=== PATIENT | male | born 1955 ===

== ENCOUNTER 2021-12-10 10:51 | Outpatient (REF) | payer MEDICARE, SELFPAY ==
--- NOTE | 2021-12-10 11:08 | ECG_ITS ---
Test Reason : PREOP Blood Pressure : / mmHG Vent. Rate : 071 BPM Atrial Rate : 071 BPM P-R Int : 136 ms QRS Dur : 078 ms QT Int : 402 ms P-R-T Axes : 081 066 056 degrees QTc Int : 436 ms Sinus rhythm with Premature atrial complexes Otherwise normal ECG No previous ECGs available Referred By: Angelina Graf Electronically Signed By:FE RIVERA MD
[2021-12-10 11:13] LABS: MANUAL DIFF FLAG NO
[2021-12-10 11:37] LABS: Basophils Absolute Auto 0.1 X10*3/uL (0.0-0.2); Basophils Percent Auto 1.2 % (0-2); Eosinophils Absolute Auto 0.3 X10*3/uL (0.0-0.4); Hematocrit 36.6 % (42.0-52.0); Hemoglobin 12.4 g/dl (14.0-18.0); Imm Gran Abs Auto 0.01 X10*3/uL (0.00-0.03); Imm Gran Pct Auto 0.2 % (0.0-0.4); Lymphocytes Absolute Auto 1.8 X10*3/uL (1.2-4.9); Lymphocytes Percent Auto 43.4 % (20-40); Mean Corpuscular HGB Conc 33.9 g/dl (31.0-36.0); Mean Corpuscular Hemoglobin 29.9 pg (27.0-33.0); Mean Corpuscular Volume 88.2 fL (80.0-98.0); Mean Platelet Volume 10.3 fL (9.4-12.4); Monocytes Absolute Auto 0.4 X10*3/uL (0.1-1.2); Monocytes Percent Auto 9.4 % (2-11); Neutrophils Absolute Auto 1.6 x10*3/uL (2.0-8.3); Neutrophils Percent Auto 37.8 % (45-73); Platelet Count 284 X10*3/uL (160-400); Red Blood Count 4.15 X10*6/uL (4.60-5.80); White Blood Count 4.2 X10*3/uL (4.8-10.8)
[2021-12-10 11:46] LABS: Prothrombin Time 10.8 SEC (9.9-13.0)
[2021-12-10 11:49] LABS: Partial Thromboplastin Time 35.1 SEC (24.1-38.0)
[2021-12-10 12:24] LABS: Alanine Aminotransferase 20 U/L (0-40); Albumin Level 4.4 g/dL (3.5-5.0); Alkaline Phosphatase 71 U/L (39-117); Anion Gap 13 (12-20); Aspartate Amino Transferase 27 U/L (5-37); Bilirubin Total 0.5 mg/dL (0.0-1.0); Blood Urea Nitrogen 16 mg/dL (9-16); Calcium 9.3 mg/dL (8.4-10.2); Carbon Dioxide 24 mmol/L (22-29); Chloride 105 mmol/L (96-108); Cholesterol 152 mg/dL; Estimated Glomerular Filt Rate > 60; Glucose Fasting 65 mg/dL (60-99); HDL Cholesterol 42 mg/dL; LDL Cholesterol Calculated 82 mg/dl; Potassium 4.8 mmol/L (3.3-5.1); Sodium 137 mmol/L (135-145); Total Protein 7.4 g/dL (6.5-8.0); Triglycerides 142 mg/dL
[2021-12-10 12:27] LABS: Prostate Specific Antigen Scr 0.18 ng/mL (<0.05-4.0)
[2021-12-10 12:57] LABS: TSH reflex Free T4 1.75 uIU/mL (0.32-4.0)
== END 2021-12-10 10:52 | disposition home or self-care (01) ==
LOC: HO.LAB 10:51
PROVIDERS: PCP Internal Medicine; Visit Provider Nurse Practitioner Family
DX: Z01.818 Encounter for other preprocedural examination (principal); Z13.1 Encounter for screening for diabetes mellitus; Z13.220 Encounter for screening for lipoid disorders; Z12.5 Encounter for screening for malignant neoplasm of prostate; D17.0 Benign lipomatous neoplasm of skin and subcutaneous tissue of head, face and neck; E78.00 Pure hypercholesterolemia, unspecified; I10 Essential (primary) hypertension; Z76.89 Persons encountering health services in other specified circumstances
CPT/HCPCS: 36415; 80053; 80061; 84153; 84443; 85025; 85610; 85730; 93005

== ENCOUNTER → 2021-12-23 15:51 | Outpatient (BNVA) | payer MEDICARE, SELFPAY | PROVIDERS: PCP Internal Medicine; Referring Provider Internal Medicine; Visit Provider Surgery | DX: R22.0 Localized swelling, mass and lump, head (principal) | CPT/HCPCS: 99202 ==

== ENCOUNTER 2022-01-28 07:23 | Outpatient (REF) | payer MEDICARE, SELFPAY ==
[2022-01-28 07:34] VITALS: BP 127/85; PULSE 65; RESP 16; TEMP 36.9; O2SAT 98
[2022-01-28 08:00] VITALS: BMI 21.6
--- NOTE | 2022-01-28 08:29 | W.PM.OPN ---
Operative Note Operative Note Date of Service: 01/28/22 Narrative: Preop diagnosis: subcutaneous mass,left and right cheeks Postop diagnosis: Epidermal inclusion cyst, left and right cheeks Procedure: Excision of epidermal inclusion cyst x2, left and right cheek surgeon: Miguel Chu MD Patient is 66-year-old male with well-defined, subcutaneous masses on the left and right cheeks. Her both about 1 cm in diameter. This were both mobile. Understood the technique of excision under local anesthesia. He was aware of the risks, benefits, and alternatives He was brought to the minor procedure room. He was placed supine. The right cheek was prepped draped usual sterile fashion. A surgical time-out had been done. Infiltrated the area with lidocaine 1%. I made an incision on the skin overlying the subcutaneous mass using blade 15. This was carried down with sharp dissection using the blade as well as in scissors until a cyst capsule was seen. I sharply dissected the cyst capsule using a fine tip pair of scissors to free this from the rest of subcutaneous layer and this was delivered and sent as a specimen. This was consistent with an epidermal inclusion cyst. this was about 1 cm in diameter. I closed the incision with full-thickness nylon 5 0 simple interrupted sutures. Steri-Strips were applied. I then proceeded to prep and drape the mass on the left cheek. I infiltrated this with lidocaine 1%. I made the incision using blade 15 and carried this down until a cyst capsule was visualized. I sharply dissected the cyst capsule off of the rest of the subcutaneous tissue using fine scissors. This was sent as a specimen. I closed this incision with nylon 5 0 simple interrupted sutures. Steri-Strips were applied. The procedure was then completed The patient tolerated procedure well. There were no complications noted. Estimated blood loss was less than 2 cc . The patient was given wound care instructions and will be seen in the office for follow-up visit.
[2022-01-28 08:30] VITALS: BP 135/88; PULSE 63; RESP 16; O2SAT 98
== END 2022-01-28 07:24 | disposition home or self-care (01) ==
LOC: HO.MS 07:23
PROVIDERS: PCP Internal Medicine; Visit Provider Surgery
PROC: (CPT 11442; principal; 2022-01-28 08:00)
DX: L72.0 Epidermal cyst (principal)
CPT/HCPCS: 11442; 11441; 88304; 88305

== ENCOUNTER 2022-05-28 17:21 | Emergency (ER) | payer MEDICARE, SELFPAY ==
[2022-05-28 19:12] VITALS: BP 129/80; PULSE 64; RESP 18; TEMP 36.5; O2SAT 97; BMI 21.6
[2022-05-28 20:48] LABS: MANUAL DIFF FLAG NO
[2022-05-28 20:50] LABS: Basophils Percent Auto 0.6 % (0-2); Eosinophils Absolute Auto 0.3 X10*3/uL (0.0-0.4); Eosinophils Percent Auto 4.8 % (0-4); Hematocrit 37.2 % (42.0-52.0); Hemoglobin 12.6 g/dl (14.0-18.0); Lymphocytes Absolute Auto 2.3 X10*3/uL (1.2-4.9); Lymphocytes Percent Auto 44.8 % (20-40); Mean Corpuscular HGB Conc 33.9 g/dl (31.0-36.0); Mean Corpuscular Hemoglobin 29.9 pg (27.0-33.0); Mean Corpuscular Volume 88.4 fL (80.0-98.0); Mean Platelet Volume 8.3 fL (9.4-12.4); Monocytes Absolute Auto 0.4 X10*3/uL (0.1-1.2); Monocytes Percent Auto 6.9 % (2-11); Neutrophils Absolute Auto 2.2 x10*3/uL (2.0-8.3); Neutrophils Percent Auto 42.9 % (45-73); Platelet Count 335 X10*3/uL (160-400); Red Blood Count 4.21 X10*6/uL (4.60-5.80); Red Cell Distribution Width 13.1 % (11.0-16.0); White Blood Count 5.2 X10*3/uL (4.8-10.8)
[2022-05-28 21:11] LABS: Alanine Aminotransferase 19 U/L (0-40); Albumin Level 4.6 g/dL (3.5-5.0); Alkaline Phosphatase 70 U/L (39-117); Anion Gap 13 (12-20); Aspartate Amino Transferase 25 U/L (5-37); Bilirubin Total 0.5 mg/dL (0.0-1.0); Blood Urea Nitrogen 17 mg/dL (9-16); Calcium 9.4 mg/dL (8.4-10.2); Carbon Dioxide 28 mmol/L (22-29); Chloride 102 mmol/L (96-108); Creatinine Clr Calc Pharmacy 66.5; Estimated Glomerular Filt Rate > 60; Glucose Random 95 mg/dL (60-115); Magnesium 2.1 mg/dL (1.6-2.6); Potassium 3.8 mmol/L (3.3-5.1); Sodium 139 mmol/L (135-145); Total Protein 7.4 g/dL (6.5-8.0)
[2022-05-28 21:32] LABS: TSH reflex Free T4 2.41 uIU/mL (0.32-4.0)
== END 2022-05-29 00:33 | disposition left against medical advice (07) ==
PROVIDERS: Emergency Provider Emergency Medicine; PCP Internal Medicine
DX: R06.02 Shortness of breath (principal); Z79.899 Other long term (current) drug therapy
CPT/HCPCS: 36415; 71045; 80053; 83735; 84443; 85025; 99281; 99283

== ENCOUNTER 2022-11-26 07:00 | Outpatient (REF) | payer MEDICARE, SELFPAY ==
--- NOTE | ~2022-11-26 | XR_ITS ---
EXAMINATION: XR KNEE, RIGHT CLINICAL INFORMATION: Pain COMPARISON: None available. TECHNIQUE: Two views of the right knee. FINDINGS: No fracture or dislocation. Normal joint spaces. Small osteophyte at the quadriceps tendon insertion to the patella. No joint effusion. XR/XR knee RT 2V IMPRESSION: Small osteophyte at the quadriceps tendon insertion to the patella.
[2022-11-26 07:11] LABS: MANUAL DIFF FLAG NO
[2022-11-26 07:24] LABS: Basophils Percent Auto 0.9 % (0-2); Eosinophils Absolute Auto 0.3 X10*3/uL (0.0-0.4); Eosinophils Percent Auto 7.3 % (0-4); Hematocrit 39.1 % (42.0-52.0); Hemoglobin 12.8 g/dl (14.0-18.0); Imm Gran Abs Auto 0.01 X10*3/uL (0.00-0.03); Imm Gran Pct Auto 0.2 % (0.0-0.4); Lymphocytes Absolute Auto 1.9 X10*3/uL (1.2-4.9); Lymphocytes Percent Auto 40.9 % (20-40); Mean Corpuscular HGB Conc 32.7 g/dl (31.0-36.0); Mean Corpuscular Hemoglobin 29.6 pg (27.0-33.0); Mean Corpuscular Volume 90.3 fL (80.0-98.0); Mean Platelet Volume 9.3 fL (9.4-12.4); Monocytes Absolute Auto 0.4 X10*3/uL (0.1-1.2); Neutrophils Percent Auto 42.7 % (45-73); Platelet Count 307 X10*3/uL (160-400); Red Blood Count 4.33 X10*6/uL (4.60-5.80); Red Cell Distribution Width 13.5 % (11.0-16.0); White Blood Count 4.6 X10*3/uL (4.8-10.8)
[2022-11-26 08:13] LABS: Alanine Aminotransferase 18 U/L (0-40); Albumin Level 4.7 g/dL (3.5-5.0); Alkaline Phosphatase 70 U/L (39-117); Anion Gap 15 (12-20); Aspartate Amino Transferase 24 U/L (5-37); Bilirubin Total 0.6 mg/dL (0.0-1.0); Blood Urea Nitrogen 20 mg/dL (9-16); Calcium 9.4 mg/dL (8.4-10.2); Carbon Dioxide 25 mmol/L (22-29); Chloride 105 mmol/L (96-108); Cholesterol 170 mg/dL; Estimated Glomerular Filt Rate > 60; Glucose Fasting 85 mg/dL (60-99); HDL Cholesterol 59 mg/dL; LDL Cholesterol Calculated 98 mg/dl; Potassium 4.6 mmol/L (3.3-5.1); Sodium 140 mmol/L (135-145); Total Protein 7.1 g/dL (6.5-8.0); Triglycerides 69 mg/dL
[2022-11-26 08:18] LABS: PSA,Total (Free>4and<10) 0.18 ng/mL (0.00-4.00)
== END 2022-11-26 07:01 | disposition home or self-care (01) ==
LOC: HO.LAB 07:00
PROVIDERS: PCP Internal Medicine; Visit Provider Internal Medicine
DX: Z00.00 Encounter for general adult medical examination without abnormal findings (principal); Z12.5 Encounter for screening for malignant neoplasm of prostate; M25.561 Pain in right knee; D75.89 Other specified diseases of blood and blood-forming organs
CPT/HCPCS: 36415; 73560; 80053; 80061; 84153; 85025

== ENCOUNTER 2022-12-03 07:42 | Outpatient (REF) | payer MEDICARE, SELFPAY ==
--- NOTE | ~2022-12-03 | US_ITS ---
EXAMINATION: US RETROPERITONEAL LIMITED (AORTA) CLINICAL INFORMATION: Nicotine dependence, unspecified. COMPARISON: None available. TECHNIQUE: Mejia-scale, color Doppler and spectral Doppler evaluation of the abdominal aorta. FINDINGS: The aorta is normal. The measurements of the aorta in maximum AP and transverse dimensions respectively are as follows: Proximal: 2.7 x 2.7 cm. Mid: 2.0 x 2.1 cm. Distal: 1.8 x 1.9 cm. PSV: 76 cm/s. The measurements of the common iliac arteries in maximum AP and TRV dimensions are as follows: Right Common Iliac Artery: 0.9 x 1.0 cm. Left Common Iliac Artery: 0.8 x 1.0 cm. US/US abdominal aortic aneurysm IMPRESSION: No abdominal aortic aneurysm.
== END 2022-12-03 07:43 | disposition home or self-care (01) ==
LOC: HO.US 07:42
PROVIDERS: PCP Internal Medicine; Visit Provider Internal Medicine
DX: Z13.6 Encounter for screening for cardiovascular disorders (principal); F17.200 Nicotine dependence, unspecified, uncomplicated
CPT/HCPCS: 76706

== ENCOUNTER 2022-12-24 15:17 | Outpatient (REF) | payer MEDICARE, SELFPAY ==
--- NOTE | ~2022-12-24 | CT_ITS ---
EXAMINATION: CT CHEST SCREENING CLINICAL INFORMATION: Nicotine dependence. One pack per day for 55 years. COMPARISON: None available. TECHNIQUE: Multidetector volumetric CT imaging of the chest is performed without contrast using low dose technique. Additional 2D coronal and sagittal reformatted images and axial 3D maximum intensity projection (MIP) images are generated on the CT workstation. This CT examination was performed using dose optimization techniques as appropriate, variously including the following: *Automated exposure control *Adjustment of mA and/or kV according to patient size (this includes techniques or standardized protocols for targeted exams where dose is matched to indication/reason for exam; i.e. extremities or head) *Use of iterative reconstruction technique DLP: 41 mGy-cm FINDINGS: LUNGS: The lungs are well expanded and clear of acute pneumonic process. There are no pulmonary nodules, mass or consolidation. No ground-glass density seen. There are mild atelectatic changes right lower lobe. MEDIASTINUM: The thyroid lobes are symmetrical and normal. The central trachea and the bronchi are widely patent. Heart size and the great vessels are normal caliber. No pericardial effusion seen. No abnormal size mediastinal or hilar lymph nodes. CORONARY ARTERY CALCIFICATION: None visualized on this study. PLEURA: There is no pleural effusion. No pleural mass or thickening. AXILLA: No lymphadenopathy. UPPER ABDOMEN: Visualized liver, spleen, pancreas and bilateral adrenal glands are unremarkable. OSSEOUS STRUCTURES: No aggressive lytic or sclerotic process seen. CT/CT lung screening IMPRESSION: Plate-like atelectasis right lower lobe. No acute cardiopulmonary process. ASSESSMENT: Lung-RADS category 1: Negative RECOMMENDATION: Low-dose annual CT chest.
== END 2022-12-24 15:18 | disposition home or self-care (01) ==
LOC: HO.CT 15:17
PROVIDERS: PCP Internal Medicine; Visit Provider Physician Assistant Medical
DX: F17.210 Nicotine dependence, cigarettes, uncomplicated (principal); Z71.6 Tobacco abuse counseling
CPT/HCPCS: 71271; G0296

== ENCOUNTER 2023-11-22 15:44 | Outpatient (AMB) | payer MEDICARE, SELFPAY ==
--- NOTE | 2023-11-22 16:02 | A.OFFPC_ITS ---
Vital Signs 11/22/23 16:03 Height 5 ft 5 in Weight 120 lb BMI 20.0 BP 130/84 Blood Pressure Location Lt brachial Position Sitting Intake Visit Reasons: PE Intake Note: Patient here for a physical exam Collection Coordinator Required: No Accompanied by: Sister Allergies No Known Allergies Allergy (Verified 11/22/23 16:23) Medication List - Last Reconciled 11/22/23 by Seble Laguerre MD No Known Home Meds Tobacco use date assessed: 11/22/23 Fall risk assessment: No Falls in past year Last assessed Fall Risk: 11/22/23 Dental Screening Dental Screen Date: 11/22/23 Did you have a dental visit in the last 12 months?: Yes Did you have a dental problem in the last 6 months where you did not have access to dental care?: No Was dental information given to patient?: Patient has dentist HPI HPI Comments History of Present Illness Details This is a 68-year-old male that comes for his physical exam accompanied by sister. Colonoscopy done in [place] 2019 and was normal as per patient. Denies any chest pain. Complains of shortness of breath and is a smoker. [facility] Medical History (Updated 11/22/23 @ 16:41 by Seble Laguerre MD) Nicotine dependence, cigarettes, uncomplicated Surgical History History of excision of mass Family History Father Diabetes Stroke Prostate CA, Onset Age: 60 Mother Cancer Social History (Updated 11/22/23 @ 16:28 by Seble Laguerre MD) Housing: Apartment (with sister) Alcohol intake: current Alcohol intake frequency: a few times a month Alcohol type: beer, wine and hard liquor Patient Tobacco Use Status: Current everyday Tobacco user Tobacco use type: Cigarette Cigarettes Per Day: 10 e-Cigarette/Vaping Use: Never Used Second Hand Smoke Exposure: Yes service: No Current occupational status: employed Current occupational exposures/hazards: No Cognitive needs: No Hearing needs: No Vision needs: Yes (Glasses) Questionnaire PHQ-9 Over the last 2 weeks, how often have you been bothered by any of the following problems? 1. Little interest or pleasure in doing things: not at all 2. Feeling down, depressed, or hopeless: not at all 3. Trouble falling or staying asleep, or sleeping too much: not at all 4. Feeling tired or having little energy: not at all 5. Poor appetite or overeating: not at all 6. Feeling bad about yourself - or that you are a failure or have let yourself or your family down: not at all 7. Trouble concentrating on things, such as reading the newspaper or watching television: not at all 8. Moving or speaking so slowly that other people could have noticed. Or the opposite - being so fidgety or restless that you have been moving around a lot more than usual: not at all 9. Thoughts that you would be better off or of hurting yourself in some way: not at all Total score: 0 Depression Screening Interpretation: Negative Depression Screening Done: Yes 13926 - PHQ-9 Billing: Yes Source: Developed by Drs. Sam Salcedo, Padmini Almaguer, Bladimir Velasquez and colleagues, with an educational theo from [employer]. Thrive Questionnaire Date Thrive assessed: 11/22/23 I am a: Patient What is your living situation today?: I have a steady place to live Within the past 12 months, did the food you bought not last and you didn't have the money to get more?: Never true Within the past 12 months, did you worry whether your food would run out before you got money to buy more?: Never true Do you have trouble paying for medicines?: No Do you have trouble getting transportation to medical appointments?: No Do you have trouble paying your heating and electricity bill?: No Do you have trouble taking care of your child, family member or friend?: No Do you have trouble with day-to-day activities such as bathing, preparing meals, shopping, managing finances, etc.?: No Are you currently unemployed and looking for a job?: No Are you interested in more education?: No Please select the resources that you would like help with: None Currently or been in a relationship where the following occur: no concerns repo rted THRIVE Score: 0 AUDIT C Alcohol Use Questionnaire (AUDIT-C) 1. How often do you have a drink containing alcohol?: 2-3 times a week 2. How many drinks containing alcohol do you have on a typical day when you are drinking?: 3 or 4 3. How often do you have six or more drinks on one occasion?: Never Total Score: 4 TEX-7 AMB Questionnaire TEX-7 Date TEX - 7 assessed: 11/22/23 Feeling nervous, anxious, or on edge: 0 = Not at all Not being able to stop or control worryin = Not at all Worrying too much about different things: 0 = Not at all Trouble relaxin = Not at all Being so restless that it is hard to sit still: 0 = Not at all Becoming easily annoyed or irritable: 0 = Not at all Feeling afraid as if something awful might happen: 0 = Not at all Total TEX-7 score (0-4 normal; 5-9 mild; 10-14 moderate; 15-21 severe): 0 Source: Developed by Drs. Sam Salcedo, Padmini Almaguer, Bladimir Velasquez and colleagues, with an educational theo from [employer]. TEX-7 Assessment Billing TEX-7 Assessment Tool: TEX-7 Assessment 50572 Review of Systems Const All systems reviewed & are unremarkable except as noted in HPI and below Eyes Reports no additional complaints, Denies change in vision and Denies other visual disturbances Card Denies chest pain at rest, Denies chest pain with activity, Denies edema, Denies irregular heart rhythm, Denies claudication, Denies dyspnea, Denies dyspnea on exertion, Denies orthopnea, Denies paroxysmal nocturnal dyspnea and Denies slow heart rate Resp Denies cough, Denies dyspnea and Denies dyspnea on exertion GI Denies abdominal pain, Denies change in bowel habits, Denies excessive flatus, Denies nausea and Denies vomiting Denies urinary hesitancy, Denies urinary incontinence and Denies urinary urgency Physical exam (Primary Care) Vital Signs: Last Vital Signs BP 130/84 11/22/23 16:03 BMI result Body Mass Index 20.0 Tobacco/Smoking Status: Tobacco use Status Tobacco use date assessed 11/22/23 11/22/23 16:10 Patient Tobacco Use Status Current everyday Tobacco 11/22/23 16:28 Tobacco use type Cigarette 11/22/23 16:28 e-Cigarette/Vaping Use Never Used 11/22/23 16:28 PHQ-9: PHQ-9 Score PHQ-9: Total score 0 11/22/23 16:29 Depression Screening Interpretation: Negative Thrive Assessment: Date of Thrive Assessment Date Thrive assessed 11/22/23 11/22/23 16:10 Currently or been in a relationship where the following occur: no concerns reported Const Orientation/consciousness: patient oriented x3 HENMT Head: Yes normal to inspection, Yes normocephalic and Yes atraumatic Ears: external ears normal Eyes General: appearance normal, both eyes and all related structures Eyelids: Yes eyelids normal Conjunctivae: conjunctivae normal Neck Neck: Yes normal visual inspection and Yes supple Resp Effort & Inspection: normal respiratory effort Auscultation: clear to auscultation bilaterally Cardio Jugular venous distension: no JVD Rate: regular rate Rhythm: regular rhythm Heart sounds: S1 normal heart sound present and S2 normal heart sound present GI Inspection: Yes normal to inspection Palpation (GI): Soft to palpation and nontender Auscultation: normal bowel sounds Skin General skin exam: no rashes or lesions noted Neuro General: patient oriented x3 and no focal motor deficits Extrem General: Yes full ROM Psych Appearance: grossly normal Assessment and Plan Assessment & Plan (1) Physical exam: Code(s): Z00.00 - Encounter for general adult medical examination without abnormal findings Plan: Repeat in a year. Orders: Orders Complete Blood Count Auto Diff Today D64.9 - Anemia, unspecified IRON PROFILE Today D64.9 - Anemia, unspecified Lipid Panel Today Z00.00 - Encounter for general adult medical examination without abnormal findings PSA,Total (Free>4and<10) Today Z12.5 - Encounter for screening for malignant neoplasm of prostate Comprehensive [facility]. Panel Fast Today Z00.00 - Encounter for general adult medical examination without abnormal findings Referrals Pulmonology Referral R06.00 - Dyspnea, unspecified Medications: New Ventolin HFA 90 mcg/actuation (albuterol sulfate) 2 puffs inhalation Q6H 30 days PRN 8 grams 1RF shortness of breath or wheezing NS R06.00 - Dyspnea, unspecified Coding Level of Care Code Est Pt Prev Care >65y(39931) Diagnoses Physical exam Z00.00 Additional Codes TEX-7 Assessment Billing - TEX-7 Assessment Tool: TEX-7 Assessment 56352 ([id number]) Time Spent (min) 32
[2023-11-22 16:03] VITALS: BP 130/84
== END 2023-11-22 16:34 | disposition home or self-care (01) ==
PROVIDERS: Visit Provider Internal Medicine
DX: Z00.00 Encounter for general adult medical examination without abnormal findings (principal)
CPT/HCPCS: 99397

== ENCOUNTER 2023-11-26 06:55 | Outpatient (REF) | payer MEDICARE, SELFPAY ==
[2023-11-26 07:11] LABS: MANUAL DIFF FLAG NO
[2023-11-26 07:53] LABS: Basophils Percent Auto 0.6 % (0-2); Eosinophils Absolute Auto 0.7 X10*3/uL (0.0-0.4); Eosinophils Percent Auto 14.3 % (0-4); Hematocrit 39.5 % (42.0-52.0); Hemoglobin 13.1 g/dl (14.0-18.0); Imm Gran Abs Auto 0.01 X10*3/uL (0.00-0.03); Imm Gran Pct Auto 0.2 % (0.0-0.4); Lymphocytes Absolute Auto 1.9 X10*3/uL (1.2-4.9); Lymphocytes Percent Auto 39.8 % (20-40); Mean Corpuscular HGB Conc 33.2 g/dl (31.0-36.0); Mean Corpuscular Hemoglobin 30.5 pg (27.0-33.0); Mean Corpuscular Volume 91.9 fL (80.0-98.0); Mean Platelet Volume 9.3 fL (9.4-12.4); Monocytes Absolute Auto 0.5 X10*3/uL (0.1-1.2); Monocytes Percent Auto 9.6 % (2-11); Neutrophils Absolute Auto 1.7 x10*3/uL (2.0-8.3); Neutrophils Percent Auto 35.5 % (45-73); Platelet Count 339 X10*3/uL (160-400); Red Cell Distribution Width 13.1 % (11.0-16.0); White Blood Count 4.7 X10*3/uL (4.8-10.8)
[2023-11-26 08:41] LABS: Alanine Aminotransferase 20 U/L (0-40); Albumin Level 4.5 g/dL (3.5-5.0); Alkaline Phosphatase 89 U/L (39-117); Anion Gap 11 (12-20); Aspartate Amino Transferase 23 U/L (5-37); Bilirubin Total 0.2 mg/dL (0.0-1.0); Blood Urea Nitrogen 12 mg/dL (9-16); Calcium 9.7 mg/dL (8.4-10.2); Carbon Dioxide 26 mmol/L (22-29); Chloride 106 mmol/L (96-108); Cholesterol 145 mg/dL (<200); Estimated Glomerular Filt Rate > 60; Glucose Fasting 105 mg/dL (60-99); HDL Cholesterol 48 mg/dL (>40); Iron 61 mcg/dL (45-160); LDL Cholesterol Calculated 81 mg/dL (<100); Percent Iron Saturation 23 % (15-50); Sodium 139 mmol/L (135-145); Total Iron Binding Capacity 263 mcg/dL (228-428); Total Protein 7.4 g/dL (6.5-8.0); Triglycerides 84 mg/dL (<150); Unsaturated Iron Binding 202 ug/dL
[2023-11-26 08:53] LABS: PSA,Total (Free>4and<10) 0.23 ng/mL (0.00-4.00)
== END 2023-11-26 06:56 | disposition home or self-care (01) ==
LOC: HO.LAB 06:55
PROVIDERS: PCP Internal Medicine; Visit Provider Internal Medicine
DX: Z00.00 Encounter for general adult medical examination without abnormal findings (principal); D64.9 Anemia, unspecified; Z12.5 Encounter for screening for malignant neoplasm of prostate
CPT/HCPCS: 36415; 80053; 80061; 83540; 84153; 85025

== ENCOUNTER 2024-02-16 10:23 | Outpatient (AMB) | payer MEDICARE, SELFPAY ==
[2024-02-16 10:31] VITALS: BP 120/78; PULSE 79; O2SAT 95; BMI 19.3
--- NOTE | 2024-02-16 10:31 | A.OFFVIS_ITS ---
Vital Signs 02/16/24 10:31 Height 5 ft 5 in Weight 115 lb 11.883 oz BMI 19.3 BP 120/78 Blood Pressure Location Rt brachial Position Sitting Pulse 79 Pulse Source Doppler Pulse Oximetry (%) 95 Oxygen Delivery Method Room Air Intake Visit Reasons: dyspnea Pneumatic System Conveyor Operator Required: Yes Pneumatic System Conveyor Operator Name: Oxana Glynn Oleary Allergies No Known Allergies Allergy (Verified 02/16/24 10:34) HPI HPI dyspnea: Details: 68-year-old gentleman, active 30 pack-year smoker referred for evaluation of dyspnea on exertion that he has been noticing over the last months. Patient denies wheezing, cough or sputum production. He does have family history of asthma in first-degree relatives. Patient denies prior personal history of lung disease. He has been employed without exposure to industrial dusts. He denies having environmental allergies. [facility] Medical History Nicotine dependence, cigarettes, uncomplicated Surgical History History of excision of mass Family History Father Diabetes Stroke Prostate CA, Onset Age: 60 Mother Cancer Social History (Updated 02/16/24 @ 10:36 by Oxana Sheets [facility]) Housing: Apartment (with sister) Alcohol intake: current Alcohol intake frequency: a few times a month Alcohol type: beer, wine and hard liquor Patient Tobacco Use Status: Current everyday Tobacco user Tobacco use type: Cigarette Cigarettes Per Day: 10 Years Smoked: Started at age 19, half a pack per day e-Cigarette/Vaping Use: Never Used Second Hand Smoke Exposure: Yes service: No Current occupational status: employed Current occupational exposures/hazards: No Cognitive needs: No Hearing needs: No Vision needs: Yes (Glasses) Review of Systems Const Denies daytime sleepiness, Denies excessive sweating, Denies fatigue, Denies fever(s), Denies lethargy, Denies malaise, Denies night sweats, Denies snoring and Denies weight loss Eyes Denies blurry vision and Denies itchy eyes ENT Denies nasal congestion, Denies post nasal drip, Denies sinus pain, Denies sinus pressure and Denies other ( Thrush) Card Denies chest pain, Denies pedal edema, Denies dyspnea, Reports dyspnea on exertion, Denies orthopnea and Denies paroxysmal nocturnal dyspnea Resp Denies cough, Denies hemoptysis, Denies excessive phlegm production, Denies dyspnea, Reports dyspnea on exertion, Denies snoring and Denies wheezing GI Denies abdominal pain and Denies heartburn Musc Denies myalgias, Denies arthralgias and Denies joint swelling Skin/Breast Denies rash Neuro Denies memory loss and Denies seizure-like activity Psych Denies abnormal sleep pattern, Denies anxiety and Denies memory loss Endo Denies excessive sweating, Denies fatigue and Denies heat intolerance Humberto/Lymph Denies easy bruising Aller/Immun Denies itchy eyes, Denies seasonal rhinorrhea and Denies wheezing Physical Exam Vital Signs: Last Vital Signs Pulse 79 02/16/24 10:31 BP 120/78 02/16/24 10:31 Pulse Ox 95 02/16/24 10:31 Oxygen Delivery Method Room Air 02/16/24 10:31 BMI result Body Mass Index 19.3 Const General: no acute distress and alert Nutritional Appearance: not obese Orientation/consciousness: Other orientation findings ( oriented) HEENT Head: Yes atraumatic Eyes General: appearance normal, both eyes and all related structures Sclerae: sclerae normal EOM: EOMs intact bilaterally Neck Neck: Yes supple Lymphatic: no lymphadenopathy noted Resp Effort & Inspection: normal respiratory effort and no use of accessory muscles Auscultation: clear to auscultation bilaterally Cardio Rate: regular rate Rhythm: regular rhythm Heart sounds: no gallops, no murmurs and no rubs Skin General skin exam: other ( warm) Extrem General: No clubbing, No cyanosis and No edema Assessment & Plan Assessment & Plan (1) Dyspnea on exertion: Code(s): R06.09 - Other forms of dyspnea Category: Medical Plan: Likely underlying COPD. Will obtain full PFT. Will start on empiric Anoro and albuterol MDI. (2) Nicotine dependence, cigarettes, uncomplicated: Comment: (current smoker, onset 21yo, 1/2ppd x 46yrs, now 1/4ppd - 20pyh) Code(s): F17.210 - Nicotine dependence, cigarettes, uncomplicated Category: Medical Plan: Results of prior from December of [address] chest reviewed. Will repeat lung cancer screening CT chest. Orders: Orders CT lung screening Today F1210 - Nicotine dependence, cigarettes, uncomplicated PFT pulmonary function test Today R06.09 - Other forms of dyspnea Medications: New umeclidinium-vilanterol 62.5-25 mcg/actuation (Anoro Ellipta) 1 inh inhalation DAILY 1 ea 6RF F17.210 - Nicotine dependence, cigarettes, uncomplicated Refilled Ventolin HFA 90 mcg/actuation (albuterol sulfate) 2 puffs inhalation Q6H 30 days PRN 8 grams 6RF shortness of breath or wheezing NS R06.00 - Dyspnea, unspecified Coding Level of Care Code New Pt Level 4 (57241) Diagnoses Dyspnea on exertion R06.09 Nicotine dependence, cigarettes, uncomplicated
== END 2024-02-16 10:52 | disposition home or self-care (01) ==
PROVIDERS: PCP Internal Medicine; Visit Provider Internal Medicine Pulmonary Disease
DX: R06.09 Other forms of dyspnea (principal); F17.210 Nicotine dependence, cigarettes, uncomplicated
CPT/HCPCS: 99204

== ENCOUNTER → 2024-02-16 10:23 | Outpatient (BNVA) | payer MEDICARE, SELFPAY | PROVIDERS: PCP Internal Medicine; Visit Provider Internal Medicine Pulmonary Disease | DX: R06.09 Other forms of dyspnea (principal); F17.210 Nicotine dependence, cigarettes, uncomplicated | CPT/HCPCS: 99202 ==

== ENCOUNTER 2024-04-03 12:45 | Outpatient (REF) | payer MEDICARE, SELFPAY ==
--- NOTE | ~2024-04-03 | CT_ITS ---
EXAMINATION: CT LOW-DOSE SCREENING CHEST WITHOUT CONTRAST CLINICAL INFORMATION: Nicotine dependence, cigarettes, uncomplicated. The patient is a current smoker with a 112 pack-year history of smoking. COMPARISON: CT chest 12/24/2022 and x-ray chest 05/28/2022. TECHNIQUE: Multidetector volumetric CT imaging of the chest is performed on a Siemens SOMATOM Perspective scanner without contrast using low dose technique. Additional 2D coronal and sagittal reformatted images and axial 3D maximum intensity projection (MIP) images are generated on the CT workstation. This CT examination was performed using dose optimization techniques as appropriate, variously including the following: *Automated exposure control *Adjustment of mA and/or kV according to patient size (this includes techniques or standardized protocols for targeted exams where dose is matched to indication/reason for exam; i.e. extremities or head) *Use of iterative reconstruction technique TOTAL EXAM DLP: 55 mGy-cm. CTDIvol: 1.53 mGy. FINDINGS: PULMONARY NODULES: - 3 mm groundglass nodule left upper lobe posterior segment (series 5, image 150). Stable. - 3 mm groundglass nodule anterolateral left lower lobe (series 5, image 308). Stable. -3 mm triangular nodule abutting the left major fissure (series 5, image 311), stable and consistent with intrapulmonary lymph node. -3 mm triangular nodule lateral left lower lobe (series 5, image 316) with pleural tag, likely intrapulmonary lymph node. Stable. LUNGS: -There is mild to moderate centrilobular emphysema with upper lobe predominance. -There is biapical mild pleural parenchymal scarring. -There is diffuse small airway thickening without significant bronchiectasis. There are numerous punctate foci bilaterally of small airway mucous plugging present. Findings suggest chronic bronchitis. -There are no consolidations or abnormal groundglass opacities. Trachea and major bronchi are patent without filling defects. Small amount of secretions in the dependent left trachea. -No pleural masses or effusions MEDIASTINUM: -Normal thyroid, incompletely imaged. -Aorta is mildly calcified but normal in caliber and course without aneurysm. -Pulmonary artery is normal in size. -No adenopathy is present in the mediastinum or hilum. -The esophagus appears normal. -Heart size is normal. There is no pericardial effusion. CORONARY ARTERY CALCIFICATION: None visualized on this study. CHEST WALL/AXILLA: No masses or abnormal lymph nodes. UPPER ABDOMEN: Included portions of the solid organs in the upper abdomen unremarkable on noncontrast imaging. OSSEOUS STRUCTURES: No suspicious lytic or blastic bony lesions. Mild degenerative spinal changes. CT/CT lung screening IMPRESSION: 1. A few 3 mm groundglass and solid nodules left lung, stable and statistically benign. 2. No enlarging or new nodules. 3. Mild to moderate centrilobular emphysema with upper lobe predominance. 4. Mild diffuse small airway thickening without bronchiectasis. Several small punctate foci of peripheral small airway mucous plugging. Findings suggest chronic bronchitis. ASSESSMENT: 1. Lung-RADS Category 2: Benign appearance or behavior of nodules. 2. Lung-RADS Category S: None. RECOMMENDATION: Continued routine annual low-dose CT lung screening in 1 year is recommended. An order for CT CHEST LOW DOSE CANCER SCREENING ([id number]) can be placed.
== END 2024-04-03 12:46 | disposition home or self-care (01) ==
LOC: HO.CT 12:45
PROVIDERS: Visit Provider Physician Assistant Medical
DX: Z12.2 Encounter for screening for malignant neoplasm of respiratory organs (principal); F17.210 Nicotine dependence, cigarettes, uncomplicated
CPT/HCPCS: 71271

== ENCOUNTER → 2024-04-03 12:45 | Outpatient (BNV) | payer MEDICARE, SELFPAY | PROVIDERS: Visit Provider Radiology Diagnostic Radiology | DX: F17.200 Nicotine dependence, unspecified, uncomplicated (principal) | CPT/HCPCS: 71271 ==

== ENCOUNTER 2024-04-10 13:21 | Outpatient (AMB) | payer MEDICARE, SELFPAY ==
[2024-04-10 13:39] VITALS: BP 120/62; PULSE 75; O2SAT 98; BMI 19.6
--- NOTE | 2024-04-10 13:39 | MHC.OFFVIS ---
Vital Signs 04/10/24 13:39 Height 5 ft 5 in Weight 117 lb 15.157 oz BMI 19.6 BP 120/62 Blood Pressure Location Rt brachial Position Sitting Pulse 75 Pulse Source Doppler Pulse Oximetry (%) 98 Oxygen Delivery Method Room Air Intake Visit Reasons: Dyspnea Integration Specialist Required: Yes Integration Specialist Name: Oxana Maki Anirudh Allergies No Known Allergies Allergy (Verified 02/16/24 10:34) HPI HPI Dyspnea: Details: 69-year-old gentleman, active 30 pack-year smoker followed for COPD and pulmonary nodules. He had follow-up CT chest that showed stable pulmonary nodules. Continues to use underlying albuterol MDI with good control of his symptoms. He denies recent exacerbations. FORMERLY [facility] Medical History Nicotine dependence, cigarettes, uncomplicated Surgical History History of excision of mass Family History Father Diabetes Stroke Prostate CA, Onset Age: 60 Mother Cancer Social History (Updated 02/16/24 @ 10:36 by Oxana Sheets Saumya) Housing: Apartment (with sister) Alcohol intake: current Alcohol intake frequency: a few times a month Alcohol type: beer, wine and hard liquor Patient Tobacco Use Status: Current everyday Tobacco user Tobacco use type: Cigarette Cigarettes Per Day: 10 Years Smoked: Started at age 19, half a pack per day e-Cigarette/Vaping Use: Never Used Second Hand Smoke Exposure: Yes service: No Current occupational status: employed Current occupational exposures/hazards: No Cognitive needs: No Hearing needs: No Vision needs: Yes (Glasses) Review of Systems Const Denies daytime sleepiness, Denies excessive sweating, Denies fatigue, Denies fever(s), Denies lethargy, Denies malaise, Denies night sweats, Denies snoring and Denies weight loss Eyes Denies blurry vision and Denies itchy eyes ENT Denies nasal congestion, Denies post nasal drip, Denies sinus pain, Denies sinus pressure and Denies other ( Thrush) Card Denies chest pain, Denies pedal edema, Denies dyspnea, Denies orthopnea and Denies paroxysmal nocturnal dyspnea Resp Denies cough, Denies hemoptysis, Denies excessive phlegm production, Denies dyspnea, Denies snoring and Denies wheezing GI Denies abdominal pain and Denies heartburn Musc Denies myalgias, Denies arthralgias and Denies joint swelling Skin/Breast Denies rash Neuro Denies memory loss and Denies seizure-like activity Psych Denies abnormal sleep pattern, Denies anxiety and Denies memory loss Endo Denies excessive sweating, Denies fatigue and Denies heat intolerance Humberto/Lymph Denies easy bruising Aller/Immun Denies itchy eyes, Denies seasonal rhinorrhea and Denies wheezing Physical Exam Vital Signs: Last Vital Signs Pulse 75 04/10/24 13:39 BP 120/62 04/10/24 13:39 Pulse Ox 98 04/10/24 13:39 Oxygen Delivery Method Room Air 04/10/24 13:39 BMI result Body Mass Index 19.6 Const General: no acute distress and alert Nutritional Appearance: not obese Orientation/consciousness: Other orientation findings ( oriented) HEENT Head: Yes atraumatic Eyes General: appearance normal, both eyes and all related structures Sclerae: sclerae normal EOM: EOMs intact bilaterally Neck Neck: Yes supple Lymphatic: no lymphadenopathy noted Resp Effort & Inspection: normal respiratory effort and no use of accessory muscles Auscultation: clear to auscultation bilaterally Cardio Rate: regular rate Rhythm: regular rhythm Heart sounds: no gallops, no murmurs and no rubs Skin General skin exam: other ( warm) Extrem General: No clubbing, No cyanosis and No edema Assessment & Plan Assessment & Plan (1) COPD (chronic obstructive pulmonary disease): Code(s): J44.9 - Chronic obstructive pulmonary disease, unspecified Category: Medical Plan: Well controlled on Anoro and albuterol MDI. Continue current regimen. (2) Nicotine dependence, cigarettes, uncomplicated: Comment: (current smoker, onset 21yo, 1/2ppd x 46yrs, now 1/4ppd - 20pyh) Code(s): F17.210 - Nicotine dependence, cigarettes, uncomplicated Category: Medical Plan: Results of CT chest reviewed, no worrisome nodules at this time continue with yearly screening. Orders: Orders CT lung screening 03/10/25 F17.210 - Nicotine dependence, cigarettes, uncomplicated Coding Level of Care Code Est Pt Level 4 (80152) Diagnoses COPD (chronic obstructive pulmonary disease) J44.9 Nicotine dependence, cigarettes, uncomplicated F17.210
== END 2024-04-10 13:57 | disposition home or self-care (01) ==
PROVIDERS: PCP Internal Medicine; Visit Provider Internal Medicine Pulmonary Disease
DX: J44.9 Chronic obstructive pulmonary disease, unspecified (principal); F17.210 Nicotine dependence, cigarettes, uncomplicated
CPT/HCPCS: 99214

== ENCOUNTER → 2024-04-10 13:21 | Outpatient (BNVA) | payer MEDICARE, SELFPAY | PROVIDERS: PCP Internal Medicine; Visit Provider Internal Medicine Pulmonary Disease | DX: J44.9 Chronic obstructive pulmonary disease, unspecified (principal); R91.8 Other nonspecific abnormal finding of lung field; F17.210 Nicotine dependence, cigarettes, uncomplicated | CPT/HCPCS: 99212 ==

== ENCOUNTER 2024-11-21 09:05 | Outpatient (REF) | payer MEDICARE, SELFPAY ==
[2024-11-21 09:24] LABS: MANUAL DIFF FLAG NO
[2024-11-21 09:38] LABS: Basophils Percent Auto 0.9 % (0-2); Eosinophils Absolute Auto 0.4 X10*3/uL (0.0-0.4); Eosinophils Percent Auto 12.6 % (0-4); Hematocrit 41.8 % (42.0-52.0); Hemoglobin 13.8 g/dl (14.0-18.0); Imm Gran Abs Auto 0.01 X10*3/uL (0.00-0.03); Imm Gran Pct Auto 0.3 % (0.0-0.4); Lymphocytes Absolute Auto 1.6 X10*3/uL (1.2-4.9); Lymphocytes Percent Auto 46.3 % (20-40); Mean Corpuscular Hemoglobin 29.7 pg (27.0-33.0); Mean Corpuscular Volume 89.9 fL (80.0-98.0); Mean Platelet Volume 9.1 fL (9.4-12.4); Monocytes Absolute Auto 0.3 X10*3/uL (0.1-1.2); Neutrophils Percent Auto 29.9 % (45-73); Platelet Count 315 X10*3/uL (160-400); Red Blood Count 4.65 X10*6/uL (4.60-5.80); Red Cell Distribution Width 12.7 % (11.0-16.0); White Blood Count 3.4 X10*3/uL (4.8-10.8)
[2024-11-21 10:01] LABS: Alanine Aminotransferase 27 U/L (0-40); Albumin Level 4.6 g/dL (3.5-5.0); Alkaline Phosphatase 79 U/L (39-117); Anion Gap 10 (12-20); Aspartate Amino Transferase 32 U/L (5-37); Bilirubin Total 0.5 mg/dL (0.0-1.0); Blood Urea Nitrogen 10 mg/dL (9-16); Calcium 9.5 mg/dL (8.4-10.2); Carbon Dioxide 28 mmol/L (22-29); Chloride 103 mmol/L (96-108); Cholesterol 135 mg/dL (<200); Estimated Glomerular Filt Rate > 60; Glucose Fasting 106 mg/dL (60-99); HDL Cholesterol 61 mg/dL (>40); LDL Cholesterol Calculated 60 mg/dL (<100); Potassium 4.3 mmol/L (3.3-5.1); Sodium 137 mmol/L (135-145); Total Protein 7.5 g/dL (6.5-8.0); Triglycerides 72 mg/dL (<150)
== END 2024-11-21 09:06 | disposition home or self-care (01) ==
LOC: HO.LAB 09:05
PROVIDERS: PCP Internal Medicine; Visit Provider Internal Medicine
DX: Z00.00 Encounter for general adult medical examination without abnormal findings (principal); D64.9 Anemia, unspecified; C90.00 Multiple myeloma not having achieved remission; E78.5 Hyperlipidemia, unspecified
CPT/HCPCS: 36415; 80053; 80061; 85025

== ENCOUNTER 2024-11-26 15:55 | Outpatient (AMB) | payer MEDICARE, SELFPAY ==
[2024-11-26 16:20] VITALS: BP 138/84; PULSE 85; TEMP 36.2; O2SAT 96; BMI 19.7
--- NOTE | 2024-11-26 16:20 | A.OFFPC_ITS ---
Vital Signs 11/26/24 16:20 Height 5 ft 5 in Weight 118 lb 2 oz BMI 19.7 BP 138/84 Blood Pressure Location Lt brachial Position Sitting Pulse 85 Pulse Source Pulse Oximeter Temp 97.1 F Temp Source Temporal Artery Scan Pulse Oximetry (%) 96 Oxygen Delivery Method Room Air Intake Visit Reasons: ANNUAL Senior Manufacturing Engineer Required: Yes Senior Manufacturing Engineer Language: Sample Finisher Name: used tablet Accompanied by: Self / Same As Patient Allergies No Known Allergies Allergy (Verified 11/26/24 16:36) Tobacco use date assessed: 11/26/24 Fall risk assessment: No Falls in past year Last assessed Fall Risk: 11/26/24 Dental Screening Dental Screen Date: 11/26/24 Did you have a dental visit in the last 12 months?: No Did you have a dental problem in the last 6 months where you did not have access to dental care?: No Was dental information given to patient?: Patient has dentist HPI ANNUAL HPI Details Interpret Rylee [id number] ind[place]ian, - [facility] Medical History (Updated 11/26/24 @ 17:12 by Brandt Pritchett MD) Dyspnea Physical exam Bicytopenia Lipoma, face Encounter to establish care Right knee pain Dyspnea on exertion Nicotine dependence, cigarettes, uncomplicated Surgical History History of excision of mass Family History Father Diabetes Stroke Prostate CA, Onset Age: 60 Mother Cancer Social History (Updated 11/26/24 @ 16:57 by Brandt Pritchett MD) Housing: Apartment (with sister) Alcohol intake: current Alcohol intake frequency: a few times a month Alcohol type: beer, wine and hard liquor Comment: 2 days week 4 drinks Patient Tobacco Use Status: Current everyday Tobacco user Tobacco use type: Cigarette Cigarettes Per Day: 4 Years Smoked: Started at age 19, half a pack per day, e-Cigarette/Vaping Use: Never Used Second Hand Smoke Exposure: Yes service: No Current occupational status: employed Current occupational exposures/hazards: No Cognitive needs: No Hearing needs: No Vision needs: Yes (Glasses) Questionnaire PHQ-9 Over the last 2 weeks, how often have you been bothered by any of the following problems? 1. Little interest or pleasure in doing things: not at all 2. Feeling down, depressed, or hopeless: not at all 3. Trouble falling or staying asleep, or sleeping too much: not at all 4. Feeling tired or having little energy: not at all 5. Poor appetite or overeating: not at all 6. Feeling bad about yourself - or that you are a failure or have let yourself or your family down: not at all 7. Trouble concentrating on things, such as reading the newspaper or watching television: not at all 8. Moving or speaking so slowly that other people could have noticed. Or the opposite - being so fidgety or restless that you have been moving around a lot more than usual: not at all 9. Thoughts that you would be better off or of hurting yourself in some way: not at all Total score: 0 Depression Screening Interpretation: Negative Depression Screening Done: Yes 77719 - PHQ-9 Billing: Yes Source: Developed by Drs. Sam Salcedo, Padmini Almaguer, Bladimir Velasquez and colleagues, with an educational theo from [employer]. Thrive Questionnaire Date Thrive assessed: 11/26/24 I am a: Patient What is your living situation today?: I have a steady place to live Within the past 12 months, did the food you bought not last and you didn't have the money to get more?: Never true Within the past 12 months, did you worry whether your food would run out before you got money to buy more?: Never true Do you have trouble paying for medicines?: No Do you have trouble getting transportation to medical appointments?: No Do you have trouble paying your heating and electricity bill?: No Do you have trouble taking care of your child, family member or friend?: No Do you have trouble with day-to-day activities such as bathing, preparing meals, shopping, managing finances, etc.?: No Are you currently unemployed and looking for a job?: No Are you interested in more education?: No Please select the resources that you would like help with: Education Currently or been in a relationship where the following occur: No concerns repo rted THRIVE Score: 0 AUDIT C Alcohol Use Questionnaire (AUDIT-C) 1. How often do you have a drink containing alcohol?: 2-4 times a month 2. How many drinks containing alcohol do you have on a typical day when you are drinking?: 3 or 4 3. How often do you have six or more drinks on one occasion?: Never Total Score: 3 TEX-7 AMB Questionnaire TEX-7 Date TEX - 7 assessed: 11/26/24 Feeling nervous, anxious, or on edge: 0 = Not at all Not being able to stop or control worryin = Not at all Worrying too much about different things: 0 = Not at all Trouble relaxin = Not at all Being so restless that it is hard to sit still: 0 = Not at all Becoming easily annoyed or irritable: 0 = Not at all Feeling afraid as if something awful might happen: 0 = Not at all Total TEX-7 score (0-4 normal; 5-9 mild; 10-14 moderate; 15-21 severe): 0 Source: Developed by Drs. Sam Salcedo, Padmini Almaguer, Bladimir Velasquez and colleagues, with an educational theo from [employer]. TEX-7 Assessment Billing TEX-7 Assessment Tool: TEX-7 Assessment 07042 Review of Systems Const Denies poor appetite and Denies weakness Eyes Denies no additional complaints ENT Reports Normal hearing present, Denies dizziness, Denies nasal congestion, Denies tinnitus and Denies sore throat Card Denies chest pain, Denies syncope, Denies rapid heart rate and Denies dyspnea Resp Denies cough and Denies dyspnea GI Denies change in stool character, Reports constipation, Denies diarrhea, Denies nausea and Denies vomiting Denies dysuria and Denies urinary frequency Neuro Reports Normal hearing present, Denies confusion, Denies dizziness, Denies syncope and Denies weakness Psych Denies confusion Physical exam (Primary Care) Vital Signs: Last Vital Signs Temp 97.1 F 11/26/24 16:20 Pulse 85 11/26/24 16:20 BP 138/84 11/26/24 16:20 Pulse Ox 96 11/26/24 16:20 Oxygen Delivery Method Room Air 11/26/24 16:20 BMI result Body Mass Index 19.7 Tobacco/Smoking Status: Tobacco use Status Tobacco use date assessed 11/26/24 11/26/24 16:37 Patient Tobacco Use Status Current everyday Tobacco 11/26/24 16:57 Tobacco use type Cigarette 11/26/24 16:57 e-Cigarette/Vaping Use Never Used 11/26/24 16:57 PHQ-9: PHQ-9 Score PHQ-9: Total score 0 11/26/24 17:29 Depression Screening Interpretation: Negative Thrive Assessment: Date of Thrive Assessment Date Thrive assessed 11/26/24 11/26/24 16:20 Currently or been in a relationship where the following occur: No concerns reported Const General: alert; No acute distress or confusion Orientation/consciousness: No confusion HENMT Head: Yes normocephalic Ears: external ears normal and TM's normal bilaterally Face and sinus: Yes normal facial exam Mouth: moist mucous membranes Throat: Yes tonsils normal Eyes Conjunctivae: conjunctivae normal Pupils: Equal, round and reactive pupils present and Pupil accommodation reflex normal Direct Ophthalmoscopy: normal light reflex Neck Neck: No lymphadenopathy Thyroid: Thyroid normal Chest Chest palpation & inspection: normal inspection of the chest Resp Effort & Inspection: normal respiratory effort and no audible wheezes Auscultation: clear to auscultation bilaterally Cardio Rate: regular rate Rhythm: regular rhythm Peripheral pulses: radial pulses present and dorsalis pedis present GI Other: guaiac negative , prostate enlarged mild Inspection: Yes normal to inspection Palpation (GI): no masses Auscultation: normal bowel sounds and normoactive bowel sounds Other: R inguinal hernia Skin General skin exam: no rashes or lesions noted Rashes: no rashes Neuro General: No confusion Cranial nerves: Yes Equal, round and reactive pupils present and Yes Normal hearing present Cognition (Neuro): normal cognition Gait exam (Neuro): Normal gait present Motor exam (neuro): 5/5 motor strength present throughout Deep tendon reflexes (DTR's): Right brachioradialis reflex intensity grade: 2+, Left brachioradialis reflex intensity grade: 2+, Right patellar reflex intensity grade: 2+ and Left patellar reflex intensity grade: 2+ Extrem General: Yes normal to inspection and No edema Immunizations pneumoc 20-raghu conj-dip cr(PF) 0.5 mL IM syringe Performing Provider: Brandt Pritchett MD Performing Location: [facility] Administered by: FRANK Umanzor on 11/26/24 17:29 Dose Route Admin Location Dispensed Lot Number Expiration Date [facility] Hardwood Floor Finisher 0.5 mL IM Right Deltoid 0.5 mL [id number] 01/20/26 Jogli/Alcy[employer] VIS Given Date VIS Provided VIS Publication Date 11/26/24 Single Vaccine 21 Eligibility Eligibility Date Funding Source Not [facility] Eligible 11/26/24 Private Coding Level of Care Code Est Pt Level 4 (30544) Diagnoses COPD (chronic obstructive pulmonary disease) J44.9 Tobacco abuse Z72.0 Chronic anemia D64.9 Multiple myeloma C90.00 Annual physical exam Z00.00 Impaired fasting blood sugar R73.01 Right inguinal hernia K40.90 BPH (benign prostatic hyperplasia) N40.0 Additional Codes TEX-7 Assessment Billing - TEX-7 Assessment Tool: TEX-7 Assessment 97102 ([id number]) PHQ-9 - 96033 - PHQ-9 Billing: Yes ([id number]) Assessment & Plan Assessment & Plan (1) COPD (chronic obstructive pulmonary disease): Code(s): J44.9 - Chronic obstructive pulmonary disease, unspecified Category: Medical Plan: Patient is strongly advised to stop smoking! Patient is supposed to be on V entolin and Anoro. (2) Tobacco abuse: Code(s): Z72.0 - Tobacco use Category: Medical Plan: Strongly advised to stop smoking! Enrolled in the lung cancer screening program and February [address] scan (3) Chronic anemia: Code(s): D64.9 - Anemia, unspecified Category: Medical Plan: Continuing to monitor (4) Multiple myeloma: Code(s): C90.00 - Multiple myeloma not having achieved remission Category: Medical Plan: no record of hematology evaluation (5) Annual physical exam: Code(s): Z00.00 - Encounter for general adult medical examination without abnormal findings Category: Medical (6) Impaired fasting blood sugar: Code(s): R73.01 - Impaired fasting glucose Category: Medical (7) Right inguinal hernia: Code(s): K40.90 - Unilateral inguinal hernia, without obstruction or gangrene, not specified as recurrent Category: Medical (8) BPH (benign prostatic hyperplasia): Code(s): N40.0 - Benign prostatic hyperplasia without lower urinary tract symptoms Category: Medical Plan History of Present Illness The patient is a 69-year-old male presenting with COPD and related health concerns. He has a history of multiple myeloma and is currently being monitored for chronic anemia. The patient has a documented [id number] smoking history and smokes approximately four cigarettes per day. Pulmonary nodules have been identified, and a follow-up CT scan is scheduled. Recent blood work revealed mild anemia and leukopenia with slightly elevated blood glucose levels. These conditions have remained stable with regular monitoring. Health Maintenance - Advised pneumococcal vaccination due to smoking history. - Enrolled in lung cancer screening with a CT scan scheduled for February 2025. - Discussion on dietary modifications to manage elevated blood glucose levels. - Recommended regular eye examinations as last exam was in 1996. - Encouraged smoking cessation and risk reduction behaviors. Social History - Tobacco Use: [id number] history, currently smokes approximately four cigarettes daily. - Alcohol Use: Drinks on weekends; typically consumes 4-5 drinks per occasion. - Last eye examination conducted in 1996. Review of Systems - Respiratory: Reports no shortness of breath, chest pain, or wheezing. - General: Denies dizziness, passing out, or fever. - Neurological: Denies any history of seizures or passing out. - Gastrointestinal: Denies any nausea, vomiting, constipation, or diarrhea. - Genitourinary: Denies any difficulty with urination. Physical Exam - General- Examination was thorough, with no acute distress observed. - Respiratory- Lungs clear to auscultation bilaterally. No adventitious sounds noted. - Cardiovascular- Heart sounds normal; no murmur or abnormalities identified. - Head and Neck- Oral cavity clear, with no lesions or abnormalities. - Abdomen- No tenderness upon palpation; no masses identified. - Extremities- No edema; full range of motion present. - Neurological- Cranial nerves II-XII intact, reflexes normal. - Musculoskeletal- Mildly elevated prostate size was noted upon rectal examination. - No hernias detected on examination. Hernia check revealed no significant findings. Results - Labs: November 2024 blood work indicating mild anemia, chronic leukopenia, normal electrolytes and liver function, elevated blood glucose at 106 mg/dL. Plan The patient will continue with Ventolin for COPD management with attention to usage as needed. Scheduled CT scan in February will assist in assessing pulmonary nodules and continue lung cancer screening. Emphasis was placed on smoking cessation, and the patient was advised to consider risk reduction strategies. Nutritional counseling to manage his slightly elevated blood glucose levels was discussed, and a pneumococcal vaccine was administered. Routine monitoring of his anemia and multiple myeloma is to continue, and the patient will ensure regular eye examinations in the future. Patient was informed and verbally consented to the use of an ambient scribe for clinic note documentation during this visit. Discussion Notes I discussed with the patient the importance of smoking cessation given his 95-ylsr-dieu history and current smoking habits. We also reviewed the potential impact of his COPD and the significance of follow-up imaging for his pulmonary nodules. I conveyed the benefits of a pneumococcal vaccine and discussed his recent lab results, particularly addressing the blood glucose elevation. Regular monitoring for anemia and multiple myeloma was emphasized, and we reviewed eye care given his long interval since the last eye examination. As for the prostate and hernia findings, I explained the importance of monitoring these issues and outlined when to seek further evaluation. Patient Instructions - Continue using Ventolin as needed for COPD symptoms management. - Adhere to scheduled CT scanning for assessment of pulmonary nodules in February. - Focus on smoking cessation and consider risk reduction strategies. - Implement dietary modifications to manage blood glucose levels. - Schedule routine eye examinations and maintain regular health monitoring. - Complete pneumococcal vaccination as scheduled. - Monitor any changes in health status and seek further evaluation if necessary. Orders: Orders Pneumococcal 20 Immunization Today Z23 - Encounter for immunization
== END 2024-11-26 17:26 | disposition home or self-care (01) ==
LOC: HO.HMCH 15:56
PROVIDERS: PCP Internal Medicine; Visit Provider Internal Medicine
DX: J44.9 Chronic obstructive pulmonary disease, unspecified (principal); Z72.0 Tobacco use; D64.9 Anemia, unspecified; C90.00 Multiple myeloma not having achieved remission; Z00.00 Encounter for general adult medical examination without abnormal findings; R73.01 Impaired fasting glucose; K40.90 Unilateral inguinal hernia, without obstruction or gangrene, not specified as recurrent; N40.0 Benign prostatic hyperplasia without lower urinary tract symptoms; Z23 Encounter for immunization

== ENCOUNTER → 2024-11-26 15:55 | Outpatient (BNVA) | payer MEDICARE, SELFPAY | PROVIDERS: PCP Internal Medicine; Visit Provider Internal Medicine | DX: Z00.00 Encounter for general adult medical examination without abnormal findings (principal); Z23 Encounter for immunization; J44.9 Chronic obstructive pulmonary disease, unspecified; D64.9 Anemia, unspecified; C90.00 Multiple myeloma not having achieved remission; R73.01 Impaired fasting glucose; K40.90 Unilateral inguinal hernia, without obstruction or gangrene, not specified as recurrent; N40.0 Benign prostatic hyperplasia without lower urinary tract symptoms; Z72.0 Tobacco use | CPT/HCPCS: 90471; 90677; 96127; 99212 ==

== ENCOUNTER 2025-05-16 10:41 | Outpatient (REF) | payer MEDICARE, SELFPAY ==
--- NOTE | 2025-05-16 | PFT_ITS ---
Flows: FEV1: 57 % of predicted at 1.56 L FVC: 102 % of predicted at 3.64 L FEV1/FVC: 43 % Bronchodilator response: Present Volumes: Total lung capacity: 99 % of predicted at 5.94 L Residual volume: 130 % of predicted at 2.75 L Slow vital capacity: 82 % of predicted at 3.19 L Expiratory reserve volume: 130 % of predicted at 1.26 L Diffusion capacity: Mildly decreased Impression: Moderate to severe obstructive ventilatory defect with positive bronchodilator response. Increased residual volume suggests air trapping. Decreased diffusion capacity suggests emphysema. MTDD
[2025-05-16 11:27] VITALS: PULSE 83; O2SAT 98
== END 2025-05-16 10:42 | disposition home or self-care (01) ==
LOC: HO.RESP 10:41
PROVIDERS: PCP Internal Medicine; Visit Provider Internal Medicine Pulmonary Disease
DX: J44.9 Chronic obstructive pulmonary disease, unspecified (principal); R06.09 Other forms of dyspnea
CPT/HCPCS: 94010; 94640; 94727; 94729

== ENCOUNTER → 2025-05-16 10:45 | Outpatient (BNV) | payer MEDICARE, SELFPAY | PROVIDERS: PCP Internal Medicine; Visit Provider Internal Medicine Pulmonary Disease | DX: Z87.891 Personal history of nicotine dependence (principal) | CPT/HCPCS: 94060; 94727; 94729 ==